=== PATIENT | male | born 1960 | race Caucasian/White ===

== ENCOUNTER → 2020-12-15 00:44 | Outpatient (CLI) | payer OTHER, SELFPAY ==
[2020-12-15 20:44] LABS: SARS-CoV-2 RNA PCR Negative
== END ==
PROVIDERS: PCP Family Medicine; Visit Provider Internal Medicine Gastroenterology
DX: Z01.812 Encounter for preprocedural laboratory examination (principal); Z20.822 Contact with and (suspected) exposure to COVID-19
CPT/HCPCS: C9803; U0003; U0005

== ENCOUNTER 2020-12-18 00:56 | Day surgery (SDC) | payer OTHER, SELFPAY ==
[2020-12-08 13:25] VITALS: BMI 32.2
[2020-12-18 09:15] VITALS: BP 146/80; PULSE 67; RESP 16; TEMP 36.6; O2SAT 99
[2020-12-18] MEDS: LACTATED RINGERS 1,000 ML 150 ML IV CONT (09:34)
[2020-12-18 09:38] LABS: Glucose Point of Care 130 (65-105)
--- NOTE | 2020-12-18 09:41 | WPDANESEPPF ---
Anes - Initial Pre Proc Eval Procedure: Operation Date: 12/18/20 10:00 Proposed Procedures p Screening Colonoscopy - Joel Polanco MD Date/Time: 12/18/20 09:41 Surgeon: Joel Polanco MD Pre Op Diagnosis: neoplasm screening, pers hx colon polyp Patient Data Age: 60 Gender: M Height: 6 ft 3 in Weight: 115 kg Last Vital Signs Temp 97.8 F 12/18/20 09:15 Pulse 67 12/18/20 09:15 Resp 16 12/18/20 09:15 BP 146/80 H 12/18/20 09:15 Pulse Ox 99 12/18/20 09:15 Allergies Allergy/AdvReac Type Severity Reaction Status Date / Time No Known Allergies Allergy Verified 12/18/20 09:04 Home Medications Medication Instructions Recorded Confirmed Type amlodipine 5 mg-benazepril 40 mg 1 cap PO DAILY #90 cap 04/06/20 12/08/20 Rx capsule finasteride 5 mg tablet 5 mg PO DAILY #90 tablet 04/08/20 12/08/20 Rx metoprolol succinate 25 mg 25 mg PO DAILY #90 tablet 04/08/20 12/08/20 Rx tablet,extended release 24 hr metformin 500 mg tablet,extended 1,000 mg PO BID #360 tablet 12/02/20 12/08/20 Rx release 24 hr rosuvastatin 20 mg tablet 20 mg PO DAILY #90 tablet 12/02/20 12/08/20 Rx Laboratory Tests 12/18/20 09:34 POC Capillary Glucose 130 mg/dl H mg/dl (65-105) Patient hx anesthesia problems: none Family hx anesthesia problems: none PMFSH Past Medical History Medical History (Updated 12/18/20 @ 09:41 by Don Manley MD) BMI 35.0-35.9,adult Body mass index (bmi) 37.0-37.9, adult (04/16/19) BPH without obstruction/lower urinary tract symptoms Essential (primary) hypertension Mixed hyperlipidemia Type 2 diabetes mellitus without complication, without long-term current use of insulin Vitamin B12 deficiency anemia Family History Family History Mother Hypertension Sibling Family history of malignant neoplasm of breast Father Family history of emphysema, Onset Age: 83 Social History Social History Smoking status: Never smoker Alcohol intake: never Living arrangements: with family Gender identity (if verbalized by the patient): Male Spiritual care concerns: No Anes - Eval Final PreProcedure Day of Procedure 12/18/20 09:41 Patient weight: obese Heart: regular rate and rhythm Lungs: clear to auscultation Airway: Mallampati scale class II Neurological: alert and oriented Last oral intake: >/= 8 hours ASA classification: III Emergent: no Anesthetic plan: proceed Anesthesia type and monitoring: general GIVS and standard monitoring Informed Consent: The patient's anesthetic plan and its attendant risks and benefits were discussed with the patient/family/POA. Questions were solicited and answers provided to the satisfaction of the patient/family/POA.
--- NOTE | 2020-12-18 10:02 | PM.HPGS ---
History of Present Illness History of Present Illness Consent: Risks, benefits, and alternatives have been discussed and questions answered. Patient agrees to proceed with procedure. Chief complaint: neoplasm screening, pers hx colon polyp Narrative: Eze Jacob is a 60 year old male with colon polyp, last one ~ 5 years ago. Review of Systems Constitutional: Constitutional: Denies headache(s) and Denies weakness Eyes: Eyes: Denies blurry vision ENT: Reports Normal hearing present, Denies headache(s) and Denies neck pain Cardiovascular: Cardiovascular: Denies chest pain and Denies dyspnea Respiratory: Respiratory: Denies dyspnea Gastrointestinal: Gastrointestinal: Reports no additional gastrointestinal complaints Genitourinary: Genitourinary: Denies dysuria Musculoskeletal: Musculoskeletal: Denies neck pain Integumentary/Breasts: Skin/Breast: Denies dry skin Neurologic: Reports Normal hearing present, Denies headache(s) and Denies weakness Psychiatric: Psychiatric: Denies anxiety Endocrine: Endocrine: Denies change in body appearance Hematologic/Lymphatic: Hematologic/Lymphatic: Denies easy bleeding Allergic/Immunologic: Allergic/Immunologic: Denies urticaria PMF Past Medical History Medical History (Updated 12/18/20 @ 09:41 by Don Manley MD) BMI 35.0-35.9,adult Body mass index (bmi) 37.0-37.9, adult (04/16/19) BPH without obstruction/lower urinary tract symptoms Essential (primary) hypertension Mixed hyperlipidemia Type 2 diabetes mellitus without complication, without long-term current use of insulin Vitamin B12 deficiency anemia Family History Family History Mother Hypertension Sibling Family history of malignant neoplasm of breast Father Family history of emphysema, Onset Age: 83 Social History Social History Smoking status: Never smoker Alcohol intake: never Living arrangements: with family Gender identity (if verbalized by the patient): Male Spiritual care concerns: No Meds Home Medications and Allergies Home Medications Medication Instructions Recorded Confirmed Type amlodipine 5 mg-benazepril 40 mg 1 cap PO DAILY #90 cap 04/06/20 12/08/20 Rx capsule finasteride 5 mg tablet 5 mg PO DAILY #90 tablet 04/08/20 12/08/20 Rx metoprolol succinate 25 mg 25 mg PO DAILY #90 tablet 04/08/20 12/08/20 Rx tablet,extended release 24 hr metformin 500 mg tablet,extended 1,000 mg PO BID #360 tablet 12/02/20 12/08/20 Rx release 24 hr rosuvastatin 20 mg tablet 20 mg PO DAILY #90 tablet 12/02/20 12/08/20 Rx Allergies Allergy/AdvReac Type Severity Reaction Status Date / Time No Known Allergies Allergy Verified 12/18/20 09:04 Vital Signs Vital Signs - 24 hr 12/18/20 09:15 Temperature 97.8 F Pulse Rate 67 Respiratory Rate 16 Blood Pressure 146/80 H Pulse Oximetry 99 Exam Const: General: comfortable and no acute distress HENMT: General nose exam: Normal nares present Eyes: General: appearance normal, both eyes and all related structures Neck: Neck: no JVD Resp: Auscultation: clear to auscultation bilaterally Cardio: Rate: regular rate Rhythm: regular rhythm GI: Inspection: non-distended GI Palp: Yes Soft to palpation Skin: General skin exam: normal color Neuro: General: gait normal Speech: normal speech Extrem: General: normal to inspection Psych: Mental Status: mental status grossly normal Assessment and Plan Assessment and plan (1) Polyp of colon: Qualifiers: Colon polyp type: unspecified Colon location: unspecified part of colon Qualified Code(s): K63.5 - Polyp of colon Code(s): K63.5 - Polyp of colon Status: Acute Assessment and Plan: colonoscopy
[2020-12-18 10:38] VITALS: BP 123/67; PULSE 60; RESP 22; O2SAT 99
[2020-12-18 10:48] VITALS: BP 119/64; PULSE 62; RESP 20; O2SAT 98
[2020-12-18 10:58] VITALS: BP 149/81; PULSE 60; RESP 18; O2SAT 100
== END 2020-12-18 11:05 | disposition home or self-care (01) ==
PROVIDERS: PCP Family Medicine; Visit Provider Internal Medicine Gastroenterology
PROC: 0DJD8ZZ Inspection of Lower Intestinal Tract, Via Natural or Artificial Opening Endoscopic (ICD-10-PCS; CPT 45378; principal; 2020-12-18 10:00)
DX: Z12.11 Encounter for screening for malignant neoplasm of colon (principal); D12.2 Benign neoplasm of ascending colon; D12.5 Benign neoplasm of sigmoid colon; D12.3 Benign neoplasm of transverse colon; I10 Essential (primary) hypertension; E78.5 Hyperlipidemia, unspecified; E11.9 Type 2 diabetes mellitus without complications; E53.8 Deficiency of other specified B group vitamins; N40.0 Benign prostatic hyperplasia without lower urinary tract symptoms; K64.8 Other hemorrhoids
CPT/HCPCS: 45385; 82948; 88305; C9803; J2704; J7120; U0003; U0005

== ENCOUNTER → 2021-11-05 13:52 | Outpatient (CLI) | payer OTHER, SELFPAY ==
--- NOTE | ~2021-11-05 | XR_ITS ---
XR abdomen/kub 1V 11/05/2021 14:51 INDICATION: Gross hematuria TECHNIQUE: KUB COMPARISON: None FINDINGS: Bowel gas pattern is normal. There is no evidence of free air, mass, organomegaly, ascites or obstruction. There is a calcification overlying the right pelvis, consistent with appendicolith s een on CT examination. The bones appear intact. IMPRESSION: 1: Appendicolith. Reviewed, dictated and finalized at location A. RCYCLE DELIVERER IMPRESSION: 1: Appendicolith.
--- NOTE | ~2021-11-05 | CT_ITS ---
EXAMINATION: CT abdomen pelvis wo/w con DATE: 11/05/2021 14:50 INDICATION: Gross hematuria TECHNIQUE: Computed tomography (CT) of the abdomen and pelvis was performed with and without 130 cc O mnipaque 350 intravenous contrast. The dose-length product was 2289.70 mGy-cm. Automated exposure con trol and iterative reconstruction technique were employed. COMPARISON: CT dated 05/25/2018. FINDINGS: There is a new bladder wall mass measuring 3.6 x 2.7 cm along the right posterior lateral m argin. Enlarged prostate gland. The liver, spleen, pancreas, adrenal glands and kidneys are unremarkable. Gallbladder is present. The re are bilateral low-density lesions in both kidneys, most likely benign cysts. Ureters are normal in course and caliber. Nonobstructive bowel gas pattern. There is mild-moderate lower thoracic and lumb ar spondylosis. No focal lytic or blastic lesions. IMPRESSION: 1. New bladder wall mass measuring 3.6 x 2.7 cm along the right posterior lateral margin, concerning for transitional cell carcinoma. Recommend correlation with cystoscopy. Reviewed, dictated and finalized at location A. SIVE CARDIOLOGIST IMPRESSION: 1. New bladder wall mass measuring 3.6 x 2.7 cm along the right posterior later al margin, concerning for transitional cell carcinoma. Recommend correlation wi cystoscopy.
[2021-11-05 14:28] LABS: Estimated Glomerular Filt Rate > 60
== END ==
PROVIDERS: PCP Family Medicine; Visit Provider Nurse Practitioner Adult Health
DX: R31.0 Gross hematuria (principal)
CPT/HCPCS: 74018; 74178; Q9967

== ENCOUNTER 2021-11-22 12:05 | Outpatient (CLI) | payer OTHER, SELFPAY ==
--- NOTE | 2021-11-22 12:00 | ECG_ITS ---
Measurements Intervals [place] Rate: 49 P: 5 AK: 179 QRS: -10 QRSD: 114 T: 32 QT: 431 QTc: 393 Interpretive Statements SINUS BRADYCARDIA OTHERWISE WITHIN NORMAL LIMITS NO PREVIOUS ECG AVAILABLE FOR COMPARISON Electronically Signed On 11-22-2021 15:49:01 CDT by Alan Crews M.D.
[2021-11-22 12:37] LABS: Basophils Percent Auto 0.3 % (0.2-1.2); Eosinophils Percent Auto 0.7 % (0-4.4); Hematocrit 44.3 % (42.0-52.0); Immature Granulocyte Absolute 0.02 K/mm3 (0.00-0.031); Immature Granulocyte Percent A 0.3 % (0-0.5); Lymphocytes Absolute Auto 1.68 K/mm3 (0.9-3.2); Lymphocytes Percent Auto 27.4 % (18.3-44.2); Mean Corpuscular HGB Conc 31.6 g/dl (32-36); Mean Corpuscular Hemoglobin 29.5 pg (26-34); Mean Corpuscular Volume 93.5 fl (80-100); Mean Platelet Volume 11.3 fl (7.4-10.4); Monocytes Absolute Auto 0.4 K/mm3 (0.1-0.6); Monocytes Percent Auto 7.2 % (2.6-8.5); Neutrophils Absolute Auto 3.9 K/mm3 (1.3-6.7); Neutrophils Percent Auto 64.1 % (45.5-73.1); Platelet Count Result 187 k/mm3 (150-375); Red Blood Count 4.74 M/mm3 (4.6-6.20); Red Cell Distribution Width 13.3 % (11.5-14.5); White Blood Count 6.1 K/mm3 (4.5-10.0)
[2021-11-22 12:57] LABS: Prothrombin Time 12.7 Seconds (11.1-14.7)
[2021-11-22 12:58] LABS: Partial Thromboplastin Time 25.4 SECONDS (22.3-36.8)
[2021-11-22 13:02] LABS: Anion Gap 6 mmol/L (8-16); Blood Urea Nitrogen 12 mg/dL (9-20); Calcium 9.2 mg/dL (8.4-10.2); Carbon Dioxide 28 mmol/L (22-30); Chloride 105 mmol/L (98-107); Estimated Glomerular Filt Rate > 60; Glucose 114 mg/dL (65-110); Potassium 4.1 mmol/L (3.4-5.0); Sodium 139 mmol/L (137-145)
== END 2021-11-22 12:06 | disposition home or self-care (01) ==
LOC: ANHSURGERY 12:10
PROVIDERS: PCP Family Medicine; Visit Provider Urology
DX: D49.4 Neoplasm of unspecified behavior of bladder (principal); E11.9 Type 2 diabetes mellitus without complications; I10 Essential (primary) hypertension; Z01.818 Encounter for other preprocedural examination
CPT/HCPCS: 36415; 80048; 85025; 85610; 85730; 87086; 93005

== ENCOUNTER 2021-11-30 01:30 | Day surgery (SDC) | payer OTHER, SELFPAY ==
[2021-11-22 10:45] VITALS: BMI 29.9
--- NOTE | 2021-11-22 10:55 | PC.NURSE ---
Report to the Outpatient Waiting Room, entrance under the green pavilion located off [facility], at time 7:00 on date 11/30/21. OR Time: 9:00. - You and your visitor will be asked a series of questions to screen for COVID 19 for your protection. - A mask is required within the hospital. One visitor will be allowed to accompany the patient into the hospital. Patients visitor will be instructed to remain with patient at all times or leave the building. We will allow the visitor to come back to the postoperative area when patient is ready. Preoperative COVID Testing Requirements: No COVID Test needed if: (proof is required; if not received patient will have Rapid Test prior to entry) - Patient has received COVID Vaccine at least 14 days prior to procedure date or - Patient has positive COVID test result within last 90 days of surgery date. COVID Test needed if above criteria is not met Patients may have clear liquids (water, carbonated beverages, clear teas, apple juice) until 3 hours prior to surgery (6:00) with a maximum of 20 ounces. - No food from midnight until time of surgery Take the following medications with a SIP of water the morning of surgery: METOPROLOL Medications to discontinue per physician: VITAMINS/SUPPLEMENTS Date to take last dose: 11/26/21 Please no make-up, nail frisian, hairspray, perfume, deodorant, or body powder the day of surgery. No jewelry (including any body piercings) or valuables the day of surgery, leave them at home. Please take a shower or bath the night before, or the morning of, surgery with an antibacterial soap. Wear comfortable, loose fitting clothing. - Jewelry must be removed prior to entering the operating room. Rings and piercings that are not removed may be cut off. - The hospital will not accept responsibility for valuables. - Please leave all valuables, including medications, at home the day of surgery. If you are going home after surgery, a licensed coal tram driver must drive you home. - NO public transportation without another adult. - We recommend that an adult stay with you for 24 hours following discharge. - We also recommend that you do not drive, make important decision, drink alcoholic beverages, or take any drugs that were not prescribed by your health care provider for at least 24 hours after your discharge time. Follow any additional instructions given to you from your surgeon. Telephone instructions given to VADIM MOISE and asked if any additional questions and then verbalized understanding. Patient advised to call surgeon office or pre surgery nurse liaison [phone] if any additional questions.
--- NOTE | 2021-11-29 15:30 | WPDANESEPPF ---
Anes - Initial Pre Proc Eval Procedure: Operation Date: 11/30/21 09:00 Proposed Procedures p Trans Urethral Resection Bladder Tumor - Meño Evans MD Date/Time: 11/29/21 15:30 Surgeon: Meño Evans MD Pre Op Diagnosis: bladder tumors Patient Data Age: 61 Gender: M Height: 1.91 m Weight: 108.86 kg Allergies Allergy/AdvReac Type Severity Reaction Status Date / Time No Known Allergies Allergy Verified 11/30/21 07:42 Home Medications Medication Instructions Recorded Confirmed Type amlodipine 5 mg-benazepril 40 mg 1 cap PO DAILY #90 cap 04/05/21 11/30/21 Rx capsule finasteride 5 mg tablet 5 mg PO DAILY #90 tablet 04/05/21 11/30/21 Rx metformin 500 mg tablet,extended 1,000 mg PO BID #360 tablet 04/05/21 11/30/21 Rx release 24 hr metoprolol succinate 25 mg 25 mg PO DAILY #90 tablet 04/06/21 11/30/21 Rx tablet,extended release 24 hr rosuvastatin 20 mg tablet 20 mg PO DAILY #90 tablet 09/28/21 11/30/21 Rx cholecalciferol (vitamin D3) 125 mcg PO DAILY 11/22/21 11/30/21 History [Vitamin D3] lysine [L-Lysine] 1,000 mg PO DAILY 11/22/21 11/30/21 History multivitamin 1 tablet PO DAILY 11/22/21 11/30/21 History vitamin B complex [Complex B-100] 1 tablet PO DAILY 11/22/21 11/30/21 History Patient hx anesthesia problems: none Family hx anesthesia problems: none Results Review: All pre-operative results and documents have been reviewed as part of the pre-operative evaluation. [facility] Past Medical History Medical History (Updated 09/24/21 @ 10:12 by Josiah Wood MD) Benign microscopic hematuria BMI 32.0-32.9,adult BMI 35.0-35.9,adult Body mass index (bmi) 37.0-37.9, adult (04/16/19) BPH without obstruction/lower urinary tract symptoms Chronic constipation Epididymitis, left (05/21/21) Essential (primary) hypertension Microalbuminuria (05/21/21) Mixed hyperlipidemia Type 2 diabetes mellitus without complication, without long-term current use of insulin Umbilical hernia (~05/24/21) very small umbilical hernia easily reduced UTI (urinary tract infection) (~09/22/21) Vitamin B12 deficiency anemia Family History Family History Mother Hypertension Sibling Family history of malignant neoplasm of breast Father Family history of emphysema, Onset Age: 83 Social History Social History (Updated 05/24/21 @ 08:06 by Evie Hopson MA) Smoking status: Never smoker Alcohol intake: never Substance use: never Substance use type: does not use Living arrangements: with family Gender identity (if verbalized by the patient): Male Spiritual care concerns: No Anes - Eval Final PreProcedure Day of Procedure 11/29/21 15:30 Patient weight: obese Heart: regular rate and rhythm Lungs: clear to auscultation and normal air movement Airway: Mallampati scale class II Neurological: alert and oriented Last oral intake: >/= 8 hours ASA classification: III Emergent: no Anesthetic plan: proceed Anesthesia type and monitoring: general LMA Results Review: All pre-operative results and documents have been reviewed as part of the pre-operative evaluation. Informed Consent: The patient's anesthetic plan and its attendant risks and benefits were discussed with the patient/family/POA. Questions were solicited and answers provided to the satisfaction of the patient/family/POA.
[2021-11-30] VITALS (7 sets, daily range): BP systolic 134–146; BP diastolic 70–78; PULSE 58–76; RESP 14–18; TEMP 36.4–36.8; O2SAT 96–100
--- NOTE | 2021-11-30 07:24 | WPDHPUPDATE1 ---
History and Physical Update Update Date/Time: 11/30/21 07:24 History and Physical has been reviewed, including an updated exam of the patient. There are NO changes in the patient's condition. Risks, benefits, and alternatives have been discussed and questions answered. Patient agrees to proceed with procedure. Proceed with TURBT
[2021-11-30] MEDS: LACTATED RINGERS 1,000 ML 30 ML IV CONT ×2 (07:33→10:02)
[2021-11-30 07:36] LABS: Glucose Point of Care 143 mg/dl (65-105)
[2021-11-30] MEDS: ceFAZolin 2 GM/D5W 50 ML 2 GM/50 ML BAG IVPB (08:55)
[2021-11-30] MEDS: LIDOCAINE HCL 2% GEL UROJET 10 ML PKG MUCOUS MEM (09:51)
--- NOTE | 2021-11-30 09:56 | W.PM.PROC2 ---
Procedure Note - Detailed Date of Procedure 11/30/21 Pre-op Diagnosis bladder tumors Post-op Diagnosis Same (Large bladder tumor up to 5 cm) Procedure Performed Urethral dilatation with transurethral resection of large bladder tumor greater than 5 cm Surgeon Meño Evans MD Anesthesia General Description of Procedure Patient is taken the operative suite correctly identified. Once anesthesia was obtained he was placed in dorsal lithotomy position prepped draped usual sterile fashion. Meatus was dilated up to 28 Dominican. Twenty-four Dominican resectoscope sheath was then placed in the bladder. He does have lateral lobe hypertrophy. Upon entering the bladder there was a large tumor superior lateral to the right ureteral orifice. The areas approximately 5 cm. We resected the tumor down to the base. He did require some paralysis and then resected the base of the tumor. These were sent separately. Hemostasis was adequate at termination procedure. We did fulgurate the edges of the resection. 2% viscous lidocaine was inserted urethra. Eighteen Dominican Friedman was then placed and connected to continuous bladder irrigation. He is taken recovery stable condition. His urine remains clear to be discharged home with a Friedman catheter and have that removed on . Estimated Blood Loss 25 Drains Yes Packing No Pathology Yes Complications No immediate complications Condition Stable Disposition PACU
[2021-11-30 10:12] LABS: Glucose Point of Care 129 mg/dl (65-105)
--- NOTE | 2021-11-30 10:41 | SUR.PHASEI ---
CLAMPED CBI PER DR SOLARES AT 1040. WAS RUNNING CLEAR.
--- NOTE | 2021-11-30 14:17 | SUR.PHASEII ---
RN showed patient how to empty catheter and change between a leg bag and 2000mL bag. RN sent home a 20mL syringe to deflate balloon before removing catheter on .
== END 2021-11-30 11:35 | disposition home or self-care (01) ==
PROVIDERS: PCP Family Medicine; Visit Provider Urology
PROC: 0TBB8ZZ Excision of Bladder, Via Natural or Artificial Opening Endoscopic (ICD-10-PCS; CPT 52240; principal; 2021-11-30 09:00)
DX: C67.8 Malignant neoplasm of overlapping sites of bladder (principal); I10 Essential (primary) hypertension; E78.2 Mixed hyperlipidemia; E11.9 Type 2 diabetes mellitus without complications; D51.3 Other dietary vitamin B12 deficiency anemia; Z79.84 Long term (current) use of oral hypoglycemic drugs; E66.9 Obesity, unspecified; Z68.30 Body mass index [BMI] 30.0-30.9, adult
CPT/HCPCS: 52240; 36415; 80048; 82948; 85025; 85610; 85730; 87086; 88305; 93005; A9270; J0690; J1100; J2370; J2405; J2704; J2710; J3010; J7120

== ENCOUNTER 2022-07-01 13:29 | Outpatient (CLI) | payer OTHER, SELFPAY ==
[2022-07-01 14:33] LABS: INR 1.1; Prothrombin Time 13.5 Seconds (11.1-14.7)
[2022-07-01 14:34] LABS: Partial Thromboplastin Time 26.8 SECONDS (22.3-36.8)
== END 2022-07-01 13:30 | disposition home or self-care (01) ==
LOC: ANHSURGERY 13:32
PROVIDERS: PCP Family Medicine; Visit Provider Urology
DX: D49.4 Neoplasm of unspecified behavior of bladder (principal); Z01.818 Encounter for other preprocedural examination
CPT/HCPCS: 36415; 85610; 85730

== ENCOUNTER 2022-07-05 01:46 | Day surgery (SDC) | payer OTHER, SELFPAY ==
--- NOTE | 2022-06-29 12:32 | PC.NURSE ---
PRE-OP INSTRUCTIONS, PLEASE READ CAREFULLY Report to the Outpatient Waiting Room, entrance under the green pavilion located off [facility], at time _0715_ on date _07/05/22_. Planned Procedure Time: _0915__. Time changes happen often and if your time is changed the preop area will call you the afternoon before. - You and your visitor will be asked to self-screen and do not enter if you have any COVID symptoms. - We encourage only one visitor and NO visitors under age 16 are allowed at this time. Your visitor will receive communication by the phone number that is given day of service. - The patient visitor is requested to social distance or may leave the building when not with patient due to restrictions. - A mask is required within the hospital. Patients may have clear liquids (water, carbonated beverages, clear teas, apple juice) until 3 hours prior to surgery 0615 AM) with a maximum of 20 ounces. - No food from midnight until time of surgery Take the following medications with a SIP of water the morning of surgery: _METOPROLOL_ Medications to discontinue per ANESTHESIA - _MULTIVITAMIN 3 DAYS PRIOR TO SURGERY, Date to take last dose 07/01/22_ Please no make-up, nail macedonian, hairspray, perfume, deodorant, or body powder the day of surgery. No jewelry (including any body piercings) or valuables the day of surgery, leave them at home. Please take a shower or bath the night before, or the morning of, surgery with an antibacterial soap. Wear comfortable, loose fitting clothing. - Jewelry must be removed prior to entering the operating room. Rings and piercings that are not removed may be cut off. - The hospital will not accept responsibility for valuables. - Please leave all valuables, including medications, at home the day of surgery. If you are going home after surgery, a licensed refrigerated company driver must drive you home. - NO public transportation without another adult. - We recommend that an adult stay with you for 24 hours following discharge. - We also recommend that you do not drive, make important decision, drink alcoholic beverages, or take any drugs that were not prescribed by your health care provider for at least 24 hours after your discharge time. Follow any additional instructions given to you from your surgeon. If you or anyone in your household have experienced Covid symptoms in the past week, please notify your surgeon or the nurse liaison at the phone number below for possible testing. Telephone instructions given to ____PT and asked if any additional questions and then verbalized understanding. Patient advised to call surgeon office or pre surgery nurse liaison [phone] if any additional questions.
[2022-07-05] VITALS (7 sets, daily range): BP systolic 112–151; BP diastolic 61–73; PULSE 50–65; RESP 12–16; TEMP 36.3–36.8; O2SAT 95–99; BMI 31.1
[2022-07-05] MEDS: LACTATED RINGERS 1,000 ML 30 ML IV CONT (08:20)
[2022-07-05 08:35] LABS: Glucose Point of Care 143 mg/dl (65-105)
--- NOTE | 2022-07-05 09:03 | WPDHPUPDATE1 ---
History and Physical Update Update Date/Time: 07/05/22 09:03 History and Physical has been reviewed, including an updated exam of the patient. There are NO changes in the patient's condition. Risks, benefits, and alternatives have been discussed and questions answered. Patient agrees to proceed with procedure.
--- NOTE | 2022-07-05 09:06 | WPDANESEPPF ---
Anes - Initial Pre Proc Eval Procedure: Operation Date: 07/05/22 09:15 Proposed Procedures p Cystoscopy Bladder Biopsy with Fulguration, - Meño Evans MD s Possible Trans Urethral Resection Bladder Tumor - Meño Evans MD Date/Time: 07/05/22 09:06 Surgeon: Meño Evans MD Pre Op Diagnosis: malignant neoplasm of bladder Patient Data Age: 62 Gender: M Height: 1.91 m Weight: 112.9 kg Allergies Allergy/AdvReac Type Severity Reaction Status Date / Time No Known Allergies Allergy Verified 07/05/22 08:08 Home Medications Medication Instructions Recorded Confirmed Type rosuvastatin 20 mg tablet 20 mg PO DAILY #90 tabs 09/28/21 06/29/22 Rx lysine 1,000 mg tablet 1,000 mg PO DAILY 11/22/21 06/29/22 History multivitamin 1 tablet PO DAILY 11/22/21 07/05/22 History cholecalciferol (vitamin D3) 125 5,000 unit PO DAILY 12/01/21 06/29/22 History mcg (5,000 unit) tablet (Vitamin D3) vitamin B complex (Complex B-100 1 tablet PO DAILY 12/01/21 06/29/22 History tablet,extended release) finasteride 5 mg tablet 5 mg PO DAILY #90 tabs 03/23/22 06/29/22 Rx amlodipine 5 mg-benazepril 40 mg 1 cap PO DAILY #90 caps 03/24/22 06/29/22 Rx capsule metformin 500 mg tablet,extended 1,000 mg PO BID #360 tabs 03/24/22 06/29/22 Rx release 24 hr metoprolol succinate 25 mg 25 mg PO DAILY #90 tabs 03/24/22 06/29/22 Rx tablet,extended release 24 hr Laboratory Tests 07/05/22 08:31 POC Capillary Glucose 143 mg/dl H mg/dl (65-105) Patient hx anesthesia problems: none Family hx anesthesia problems: none Results Review: All pre-operative results and documents have been reviewed as part of the pre-operative evaluation. [facility] Past Medical History Medical History Benign microscopic hematuria BMI 30.0-30.9,adult BMI 31.0-31.9,adult BMI 32.0-32.9,adult BMI 35.0-35.9,adult Body mass index (bmi) 37.0-37.9, adult (04/16/19) BPH without obstruction/lower urinary tract symptoms Chronic constipation COVID-19 (03/02/22) Epididymitis, left (05/21/21) Essential (primary) hypertension Microalbuminuria (05/21/21) Ratio normal at 17 on 06/10/2022. Resolved Mixed hyperlipidemia Total cholesterol 136, triglycerides 98, HDL 44, LDL 74 on 06/10/2022. Neoplasm, bladder Obesity (BMI 30.0-34.9) Type 2 diabetes mellitus without complication, without long-term current use of insulin Fasting glucose 134 with hemoglobin A1c 6.0 and urine microalbumin ratio of 17 on 06/10/2022. Umbilical hernia (~05/24/21) very small umbilical hernia easily reduced UTI (urinary tract infection) (~09/22/21) Vitamin B12 deficiency anemia Level normal at 942 with folic acid 22.6 and hemoglobin 13.6 on 06/10/2022. Family History Family History Mother Hypertension Sibling Family history of malignant neoplasm of breast Father Family history of emphysema, Onset Age: 83 Social History Social History Smoking status: Never smoker Second hand tobacco smoke exposure: No Alcohol intake: never Substance use: never Substance use type: does not use Living arrangements: with family Gender identity (if verbalized by the patient): Male Spiritual care concerns: No Anes - Eval Final PreProcedure Day of Procedure 07/05/22 09:06 Patient weight: obese Heart: regular rate and rhythm Lungs: clear to auscultation Airway: Mallampati scale class II Neurological: alert and oriented Last oral intake: >/= 8 hours ASA classification: III Emergent: no Anesthesia type and monitoring: general LMA and standard monitoring Results Review: All pre-operative results and documents have been reviewed as part of the pre-operative evaluation. Informed Consent: The patient's anesthetic plan and its attendant risks and benefits were discus
--- NOTE | 2022-07-05 09:25 | SUR.PREOP ---
0925- Notified patient of delayed procedure start time. Patient verbalized understanding.
--- NOTE | 2022-07-05 10:12 | WPDHPUPDATE1 ---
History and Physical Update Update Date/Time: 07/05/22 10:12 History and Physical has been reviewed, including an updated exam of the patient. There are NO changes in the patient's condition. Risks, benefits, and alternatives have been discussed and questions answered. Patient agrees to proceed with procedure. Proceed with cysto, bladder biopsy, fulguration, possible turbt
[2022-07-05] MEDS: ceFAZolin 2 GM/D5W 50 ML 2 GM/50 ML BAG IVPB (10:15)
--- NOTE | 2022-07-05 11:01 | P.OP_ITS ---
Procedure Note - Detailed Date of Procedure 07/05/22 Pre-op Diagnosis malignant neoplasm of bladder Post-op Diagnosis Same Procedure Performed TURBT of multiple small tumors in total an area of 2-1/2-3 cm Surgeon Meño Evans MD Anesthesia General Description of Procedure Patient is taken to the operative suite correctly identified. Once anesthesia was obtained was placed in dorsal lithotomy position prepped draped usual sterile fashion. The urethra was dilated to 26 Greenlandic using sounds. Twenty-f our Greenlandic resectoscope was then inserted bladder. Bladder was inspected in its entirety. Patient has at least 13-15 small papillary lesions scattered throughout the bladder. These are on the right floor near the bladder neck, posterior wall, right anterior wall and posterior wall near the dome. These were resected all sent together. They all appeared more superficial in nature. Hemostasis was adequate. 2% viscous lidocaine was inserted into urethra patient is taken recovery stable condition. Will await final path point most likely will recommend initiating BCG in 6 weeks time for a 6 week course with re scoping in the office. Estimated Blood Loss 0 Drains No Packing No Pathology Yes Complications No immediate complications Condition Stable Disposition PACU
[2022-07-05] MEDS: LIDOCAINE HCL 2% GEL UROJET 10 ML PKG MUCOUS MEM (11:07)
[2022-07-05 11:12] LABS: Glucose Point of Care 132 mg/dl (65-105)
[2022-07-05] MEDS: oxyCODONE HCL (*CRX) 5 MG TAB IR PO (12:15)
== END 2022-07-05 12:43 | disposition home or self-care (01) ==
PROVIDERS: PCP Family Medicine; Visit Provider Urology
PROC: 0TBB8ZX Excision of Bladder, Via Natural or Artificial Opening Endoscopic, Diagnostic (ICD-10-PCS; CPT 52204; principal; 2022-07-05 09:15)
PROC: 0TBB8ZZ Excision of Bladder, Via Natural or Artificial Opening Endoscopic (ICD-10-PCS; CPT 52235; 2022-07-05 09:15)
DX: C67.8 Malignant neoplasm of overlapping sites of bladder (principal); I10 Essential (primary) hypertension; E78.2 Mixed hyperlipidemia; E11.9 Type 2 diabetes mellitus without complications; D51.3 Other dietary vitamin B12 deficiency anemia; K59.09 Other constipation; N40.0 Benign prostatic hyperplasia without lower urinary tract symptoms; Z79.84 Long term (current) use of oral hypoglycemic drugs; E66.9 Obesity, unspecified; Z68.31 Body mass index [BMI] 31.0-31.9, adult
CPT/HCPCS: 52235; 36415; 82948; 85610; 85730; 88305; A9270; J0690; J1170; J2250; J2405; J2704; J3010; J7120

== ENCOUNTER 2022-12-30 12:28 | Outpatient (CLI) | payer OTHER, SELFPAY ==
--- NOTE | 2022-12-30 12:30 | ECG_ITS ---
Measurements Intervals [place] Rate: 62 P: 30 [place]: 214 QRS: -30 QRSD: 113 T: 12 QT: 394 QTc: 401 Interpretive Statements SINUS RHYTHM WITH FIRST DEGREE AV BLOCK BORDERLINE LEFT AXIS DEVIATION [QRS AXIS < -20] COMPARED TO ECG 11/22/2021 12:22:15 SINUS RHYTHM NOW PRESENT FIRST DEGREE AV BLOCK NOW PRESENT Electronically Signed On 12-30-2022 13:03:19 CDT by See Zambrano M.D.
== END 2022-12-30 12:29 | disposition home or self-care (01) ==
PROVIDERS: PCP Family Medicine; Visit Provider Urology
DX: D49.4 Neoplasm of unspecified behavior of bladder (principal); E78.2 Mixed hyperlipidemia; I10 Essential (primary) hypertension; I44.0 Atrioventricular block, first degree
CPT/HCPCS: 87086; 93005

== ENCOUNTER 2023-01-03 02:19 | Day surgery (SDC) | payer OTHER, SELFPAY ==
[2022-12-27 14:54] VITALS: BMI 33.1
--- NOTE | 2022-12-27 14:59 | PC.NURSE ---
Report to the Outpatient Waiting Room, entrance under the green pavilion located off [facility], at time 10:00 on date 01/03/23. Planned Procedure Time: 12:00. Time changes happen often and if your time is changed the preop area will call you the afternoon before. - You and your visitor will be asked to self-screen and do not enter if you have any COVID symptoms. - A mask is optional within the hospital at this time. Patients may have clear liquids (water, carbonated beverages, clear teas, apple juice) until 3 hours prior to surgery (9:00) with a maximum of 20 ounces. - No food from midnight until time of surgery Take the following medications with a SIP of water the morning of surgery: METOPROLOL DO NOT STOP ANY OF YOUR OTHER PRESCRIPTION MEDICATIONS PRIOR TO SURGERY EXCEPT THE FOLLOWING Medications to discontinue per physician: VITAMINS/SUPPLEMENTS Date to take last dose: 12/30/22 Please no make-up, nail kazakh, hairspray, perfume, deodorant, or body powder the day of surgery. No jewelry (including any body piercings) or valuables the day of surgery, leave them at home. Please take a shower or bath the night before, or the morning of, surgery with an antibacterial soap. Wear comfortable, loose fitting clothing. - Jewelry must be removed prior to entering the operating room. Rings and piercings that are not removed may be cut off. - The hospital will not accept responsibility for valuables. - Please leave all valuables, including medications, at home the day of surgery. If you are going home after surgery, a licensed food mobile driver must drive you home. - NO public transportation without another adult if you receive anesthesia. - We recommend that an adult stay with you for 24 hours following discharge. - We also recommend that you do not drive, make important decision, drink alcoholic beverages, or take any drugs that were not prescribed by your health care provider for at least 24 hours after your discharge time. Follow any additional instructions given to you from your surgeon. If you or anyone in your household have experienced Covid symptoms in the past week, please notify your surgeon or the nurse liaison at the phone number below for possible testing. Telephone instructions given to DEMARIO MOISE and asked if any additional questions and then verbalized understanding. Patient advised to call surgeon office or pre surgery nurse liaison [phone] if any additional questions.
--- NOTE | 2023-01-02 15:23 | WPDANESEPPF ---
Anes - Initial Pre Proc Eval Procedure: Operation Date: 01/03/23 12:00 Proposed Procedures p Cystoscopy Bladder Biopsy with Fulguration with Possible Mitomycin or Gemcitabine Instillation - Meño Evans MD Date/Time: 01/02/23 15:23 Surgeon: Meño Evans MD Pre Op Diagnosis: bladder cancer Patient Data Age: 62 Gender: M Height: 1.91 m Weight: 120.2 kg Allergies Allergy/AdvReac Type Severity Reaction Status Date / Time No Known Allergies Allergy Verified 12/27/22 14:54 Home Medications Medication Instructions Recorded Confirmed Type lysine 1,000 mg tablet 1,000 mg PO DAILY 11/22/21 12/27/22 History multivitamin 1 tablet PO DAILY 11/22/21 12/27/22 History cholecalciferol (vitamin D3) 125 5,000 unit PO DAILY 12/01/21 12/27/22 History mcg (5,000 unit) tablet (Vitamin D3) vitamin B complex (Complex B-100 1 tablet PO DAILY 12/01/21 12/27/22 History tablet,extended release) finasteride 5 mg tablet 5 mg PO DAILY #90 tabs 03/23/22 12/27/22 Rx amlodipine 5 mg-benazepril 40 mg 1 cap PO DAILY #90 caps 03/24/22 12/27/22 Rx capsule metformin 500 mg tablet,extended 1,000 mg PO BID #360 tabs 03/24/22 12/27/22 Rx release 24 hr metoprolol succinate 25 mg 25 mg PO DAILY #90 tabs 03/24/22 12/27/22 Rx tablet,extended release 24 hr rosuvastatin 20 mg tablet 20 mg PO DAILY #90 tabs 09/14/22 12/27/22 Rx Patient hx anesthesia problems: none Family hx anesthesia problems: none Results Review: All pre-operative results and documents have been reviewed as part of the pre-operative evaluation. [facility] Past Medical History Medical History (Updated 12/14/22 @ 08:26 by Josiah Wood MD) Acute non-recurrent maxillary sinusitis Benign microscopic hematuria BMI 30.0-30.9,adult BMI 31.0-31.9,adult BMI 32.0-32.9,adult BMI 34.0-34.9,adult BMI 35.0-35.9,adult Body mass index (bmi) 37.0-37.9, adult (04/16/19) BPH without obstruction/lower urinary tract symptoms Chronic constipation COVID-19 (03/02/22) Epididymitis, left (05/21/21) Essential (primary) hypertension Microalbuminuria (05/21/21) Ratio normal at 17 on 06/10/2022. Resolved Mixed hyperlipidemia Total cholesterol 136, triglycerides 98, HDL 44, LDL 74 on 06/10/2022. Cholesterol 140, triglycerides 144, HDL 38, LDL 78 on 12/09/2022. Neoplasm, bladder Obesity (BMI 30.0-34.9) Type 2 diabetes mellitus without complication, without long-term current use of insulin Fasting glucose 134 with hemoglobin A1c 6.0 and urine microalbumin ratio of 17 on 06/10/2022. Glucose 111 with hemoglobin A1c 6.2 on 12/09/2022. Umbilical hernia (~05/24/21) very small umbilical hernia easily reduced UTI (urinary tract infection) (~09/22/21) Vitamin B12 deficiency anemia Level normal at 942 with folic acid 22.6 and hemoglobin 13.6 on 06/10/2022. Family History Family History Mother Hypertension Sibling Family history of malignant neoplasm of breast Father Family history of emphysema, Onset Age: 83 Social History Social History (Updated 12/14/22 @ 07:59 by Evie Hopson MA) Smoking status: Never smoker Second hand tobacco smoke exposure: No Alcohol intake: never Substance use: never Substance use type: does not use Lack of Transportation: No Lack of Food: Never True Current Housing: I Have Housing Concerned About Future Housing: No Difficulty Paying Gas/Electric Bills: No Difficulty Paying for Meds: No Currently Unemployed: No Education: Bachelor's Degree Difficulty w/ Childcare or Family Care: No Living arrangements: with family Gender identity (if verbalized by the patient): Male Spiritual care concerns: No Anes - Eval Final PreProcedure Day of Procedure 01/02/23 15:23 Patient weight: obese Heart: regular rate and rhythm Lungs: clear to auscultation Airway: Mallampati scale class II Neurological: alert and oriented Last
[2023-01-03] VITALS (21 sets, daily range): BP systolic 115–175; BP diastolic 54–95; PULSE 52–88; RESP 10–20; TEMP 36.3–37.2; O2SAT 90–99
[2023-01-03 11:16] LABS: Glucose Point of Care 122 mg/dl (65-105)
[2023-01-03] MEDS: LACTATED RINGERS 1,000 ML 30 ML IV CONT (12:15)
--- NOTE | 2023-01-03 13:18 | WPDHPUPDATE1 ---
History and Physical Update Update Date/Time: 01/03/23 13:18 History and Physical has been reviewed, including an updated exam of the patient. There are NO changes in the patient's condition. Risks, benefits, and alternatives have been discussed and questions answered. Patient agrees to proceed with procedure.
[2023-01-03] MEDS: ceFAZolin 3 GM/D5W 100 ML 100 ML IVPB (13:57)
[2023-01-03] MEDS: LIDOCAINE HCL 2% GEL UROJET 10 ML PKG MUCOUS MEM (14:09)
--- NOTE | 2023-01-03 14:15 | W.PM.PROC2 ---
Procedure Note - Detailed Date of Procedure 01/03/23 Pre-op Diagnosis bladder cancer Post-op Diagnosis Same Procedure Performed Cystoscopy with transurethral resection of bladder tumor medium size area 3-4 cm Surgeon Meño Evans MD Anesthesia General Description of Procedure Patient is taken to the operative suite correctly identified. Once anesthesia was obtained was placed in dorsal lithotomy position and prepped draped usual sterile fashion. Twenty-four [place] Rican scope was inserted the bladder. He has proximally 4-5 tumors along the dome and anterior wall. These were resected. He also had an area of calcification on the prior resection site which was resected. Fulguration was achieved using electrocautery. There was good hemostasis at termination procedure. Sixteen [place]ican Friedman was then placed after 2% viscous lidocaine was placed in the bladder. Patient will receive gemcitabine in recovery room. He is instructed to call for path results we. This completes dictation. Please send a copy to my office Estimated Blood Loss 0 Packing No Pathology Yes Complications No immediate complications Condition Stable Disposition PACU
[2023-01-03] MEDS: SODIUM CHLORIDE 0.9% IV 23.7 ML, GEMCITABINE HCL 1,000 MG BLADDER ×2 (14:26)
--- NOTE | 2023-01-03 14:26 | SUR.PHASEI ---
chemo agent gemcitabin instilled into patient's bladder by Dr. Evans in PACU. Unable to scan medication on NOV.
--- NOTE | 2023-01-03 14:27 | W.PM.PROC2 ---
Procedure Note - Detailed Date of Procedure 01/03/23 Pre-op Diagnosis bladder cancer Post-op Diagnosis Same Procedure Performed Installation of gemcitabine Surgeon Meño Evans MD Anesthesia Other Description of Procedure Patient is in the recovery room. He has undergone a transurethral section of his bladder tumor. At this point a 16 Hungarian Friedman had been placed. Gemcitabine was then instilled without difficulty in a standard fashion. This will be drained after an hour and a voiding trial will then proceed. Estimated Blood Loss 0
[2023-01-03] MEDS: SODIUM CHLORIDE 0.9% IV 50 ML BAG 150 ML IRRIGATION (15:30)
--- NOTE | 2023-01-03 15:40 | SUR.PHASEI ---
Dr. Estrada notified of patient's urine being bloody, dark wine colored upon draining bladder. Dr. Evans ordered to irrigate bladder and monitor. Notify him if hematuria does not improve.
[2023-01-03 15:50] LABS: Glucose Point of Care 127 mg/dl (65-105)
--- NOTE | 2023-01-03 15:53 | SUR.PHASEI ---
Spoke with Dr. Evans, order recieved to initiate CBI and to insert a 3-way santoro.
--- NOTE | 2023-01-03 17:58 | PC.NURSE ---
This patient, Eze Jacob, was admitted to Medical Room 244-. Patient/family oriented to hospital policies and general routines including ID bracelet, bed and alarms, visiting hours, pain management, procedures, bathroom and other care routines, personal items, smoking policy, room service/diet, and visiting hours. Information on how to activate the Rapid Response Team has been discussed. Patient/Family are encouraged to report perceived risks to care and to ask questions if they do not understand what they are told or what they should do.
[2023-01-03] MEDS: DEXTROSE 5%/LACTATED RINGERS 1,000 ML 125 ML IV CONT (18:13)
[2023-01-03] MEDS: HYDROcodone/acetaminophen (*CRX) 5-325 MG TABLET 1 TAB PO (19:57)
[2023-01-03] MEDS: ceFAZolin 1 GM/NS 50 ML 1 GM/50 ML BAG IVPB (21:34)
[2023-01-04 03:31] VITALS: BP 109/61; PULSE 78; RESP 20; TEMP 36; O2SAT 96
[2023-01-04] MEDS: ceFAZolin 1 GM/NS 50 ML 1 GM/50 ML BAG IVPB (05:26)
[2023-01-04 05:39] LABS: Hematocrit 41.2 % (42.0-52.0); Hemoglobin 13.6 g/dL (14.0-18.0)
[2023-01-04] MEDS: metFORMIN HCL XR 500 MG TAB.SR.24H 1000 MG PO (08:01)
[2023-01-04] MEDS: FINASTERIDE 5 MG TABLET PO (08:01)
[2023-01-04] MEDS: DOCUSATE SODIUM 100 MG CAPSULE PO (08:01)
[2023-01-04] MEDS: amLODIPine BESYLATE 5 MG TABLET PO (08:02)
[2023-01-04] MEDS: lisinopriL 20 MG TABLET 40 MG PO (08:02)
[2023-01-04 09:35] VITALS: BP 130/58; PULSE 57; RESP 14; TEMP 37.1; O2SAT 94
--- NOTE | 2023-01-04 12:12 | WPDANESPN ---
Anes - Prog Note Post-Op Date/Time: 01/04/23 12:12 Vital Signs: Last Vital Signs Temp 37.1 C 01/04/23 09:35 Pulse 57 L 01/04/23 09:35 Resp 14 01/04/23 09:35 BP 130/58 L 01/04/23 09:35 Pulse Ox 94 01/04/23 09:35 O2 Del Method Room Air 01/04/23 08:00 O2 Flow Rate 8 01/03/23 14:30 Pain Score (VAS): 0 I/O: Intake & Output 01/03/23 01/04/23 01/04/23 23:59 07:59 15:59 Intake Total 6550 540 240 Output Total 7302 5005 Balance -775 -960 240 Laboratory Tests 01/04/23 05:17 01/03/23 01/04/23 14:32 05:17 Hgb 13.6 L Hct 41.2 L POC Capillary Glucose 127 H Patient Feedback: Patient satisfied with anesthetic care.
[2023-01-04] MEDS: CEPHALEXIN 500 MG CAPSULE PO (12:32)
--- NOTE | 2023-01-04 13:08 | PCCCNOTE ---
On 01/04/23, the student, [Vanessa Luis ], provided care and completed [facility] documentation on this patient. I have reviewed the student's documentation and agree with the findings.
== END 2023-01-04 13:05 | disposition home or self-care (01) ==
LOC: ANHSURGERY 14:17 → ANH2MED 17:50
PROVIDERS: PCP Family Medicine; Visit Provider Urology
PROC: 0TBB8ZX Excision of Bladder, Via Natural or Artificial Opening Endoscopic, Diagnostic (ICD-10-PCS; CPT 52204; principal; 2023-01-03 12:00)
DX: C67.8 Malignant neoplasm of overlapping sites of bladder (principal); E78.2 Mixed hyperlipidemia; I10 Essential (primary) hypertension; Z79.84 Long term (current) use of oral hypoglycemic drugs; N40.0 Benign prostatic hyperplasia without lower urinary tract symptoms; E11.9 Type 2 diabetes mellitus without complications; E66.9 Obesity, unspecified; Z68.33 Body mass index [BMI] 33.0-33.9, adult
CPT/HCPCS: 52235; 36415; 51720; 82948; 85014; 85018; 88305; A9270; J0690; J1100; J2250; J2405; J2704; J3010; J7120; J7121; J9201

== ENCOUNTER 2024-04-10 06:51 | Day surgery (SDC) | payer OTHER, SELFPAY ==
[2024-02-22 14:45] VITALS: BMI 32.3
[2024-03-28 09:39] VITALS: BMI 32.5
[2024-04-10 07:59] VITALS: BP 144/76; PULSE 57; RESP 16; TEMP 36.7; O2SAT 98; BMI 32.4
[2024-04-10 08:12] LABS: Glucose Point of Care 195 mg/dl (65-105)
[2024-04-10] MEDS: LACTATED RINGERS 1,000 ML 150 ML IV CONT (08:17)
--- NOTE | 2024-04-10 08:44 | WPDANESEPPF ---
Anes - Initial Pre Proc Eval Procedure: Operation Date: 04/10/24 09:00 Proposed Procedures p Diagnostic Colonoscopy - Chase Carrillo MD Date/Time: 04/10/24 08:44 Surgeon: Chase Carrillo MD Pre Op Diagnosis: History of Colon Polyps Patient Data Age: 64 Gender: M Height: 1.91 m Weight: 117.8 kg Last Vital Signs Temp 36.7 C 04/10/24 07:59 Pulse 57 L 04/10/24 07:59 Resp 16 04/10/24 07:59 BP 144/76 H 04/10/24 07:59 Pulse Ox 98 04/10/24 07:59 O2 Del Method Room Air 04/10/24 07:59 Allergies Allergy/AdvReac Type Severity Reaction Status Date / Time No Known Allergies Allergy Verified 04/10/24 07:52 Home Medications Medication Instructions Recorded Confirmed Type lysine 1,000 mg tablet 1,000 mg PO DAILY 11/22/21 04/10/24 History multivitamin 1 tablet PO DAILY 11/22/21 04/10/24 History cholecalciferol (vitamin D3) 125 5,000 unit PO DAILY 12/01/21 04/10/24 History mcg (5,000 unit) tablet (Vitamin D3) vitamin B complex (Complex B-100 1 tablet PO DAILY 12/01/21 04/10/24 History tablet,extended release) rosuvastatin 20 mg tablet 20 mg PO DAILY #90 tabs 09/05/23 04/10/24 Rx amlodipine 5 mg-benazepril 40 mg 1 cap PO DAILY #90 caps 02/26/24 04/10/24 Rx capsule finasteride 5 mg tablet 5 mg PO DAILY #90 tabs 02/26/24 04/10/24 Rx metformin 500 mg tablet,extended 1,000 mg PO BID #360 tabs 02/26/24 04/10/24 Rx release 24 hr metoprolol succinate 25 mg 25 mg PO DAILY #90 tabs 02/26/24 04/10/24 Rx tablet,extended release 24 hr terbinafine HCl 250 mg tablet 250 mg PO .COMPLEX #90 tabs 03/14/24 04/10/24 Rx Laboratory Tests 04/10/24 08:09 POC Capillary Glucose 195 H mg/dl (65-105) Patient hx anesthesia problems: none Family hx anesthesia problems: none Results Review: All pre-operative results and documents have been reviewed as part of the pre-operative evaluation. [facility] Past Medical History Medical History Acute non-recurrent maxillary sinusitis Benign microscopic hematuria BMI 30.0-30.9,adult BMI 31.0-31.9,adult BMI 32.0-32.9,adult BMI 34.0-34.9,adult BMI 35.0-35.9,adult Body mass index (bmi) 37.0-37.9, adult (04/16/19) BPH without obstruction/lower urinary tract symptoms Chronic constipation Chronic pain in left shoulder COVID-19 (03/02/22) COVID-19 (~05/11/23) 2nd episode Epididymitis, left (05/21/21) Essential (primary) hypertension Microalbuminuria (05/21/21) Ratio normal at 17 on 06/10/2022. Resolved Mixed hyperlipidemia Total cholesterol 136, triglycerides 98, HDL 44, LDL 74 on 06/10/2022. Cholesterol 140, triglycerides 144, HDL 38, LDL 78 on 12/09/2022. total cholesterol 136, triglycerides 296, HDL 32, LDL 68 with ratio 4.3 on 06/23/2023. cholesterol 108, HDL 43, triglycerides 71, LDL 50 with ratio 2.5 on 01/22/2024. Nail fungus (~2022) recurrent fungus right great toenail Neoplasm, bladder urinary bladder cancer treated by urologist with surgeries and BCG instillation Obesity (BMI 30.0-34.9) Type 2 diabetes mellitus without complication, without long-term current use of insulin Fasting glucose 134 with hemoglobin A1c 6.0 and urine microalbumin ratio of 17 on 06/10/2022. Glucose 111 with hemoglobin A1c 6.2 on 12/09/2022. A1c 0.2 glucose 181 with hemoglobin A1c 7.2 on 06/23/2023. Fasting glucose 141 with hemoglobin A1c 7.4 on 01/22/2024. Umbilical hernia (~05/24/21) very small umbilical hernia easily reduced UTI (urinary tract infection) (~09/22/21) Vitamin B12 deficiency anemia Level normal at 942 with folic acid 22.6 and hemoglobin 13.6 on 06/10/2022. Level normal at 758 with hemoglobin 13.7 on 06/23/2023. Family History Family History Mother Hypertension Sibling Family history of malignant neoplasm of breast Father Family history of emphysema, Onset Age: 83 Social History Social History (Reviewed 04/10
--- NOTE | 2024-04-10 08:45 | PM.HPGS ---
History of Present Illness History of Present Illness Consent: Risks, benefits, and alternatives have been discussed and questions answered. Patient agrees to proceed with procedure. Chief complaint: History of Colon Polyps Narrative: Eze Jacob is a 64 year old male presents for screening colonoscopy. Patient was found to have several colon polyps at the time of last exam 3 years ago. Patient's current weight appetite and bowel movements are normal. Patient denies abdominal pain. He has had no bleeding. Family history noncontributory. Review of Systems Review of Systems: All systems reviewed & are unremarkable except as noted in HPI and below PMFSH Past Medical History Medical History Acute non-recurrent maxillary sinusitis Benign microscopic hematuria BMI 30.0-30.9,adult BMI 31.0-31.9,adult BMI 32.0-32.9,adult BMI 34.0-34.9,adult BMI 35.0-35.9,adult Body mass index (bmi) 37.0-37.9, adult (04/16/19) BPH without obstruction/lower urinary tract symptoms Chronic constipation Chronic pain in left shoulder COVID-19 (03/02/22) COVID-19 (~05/11/23) 2nd episode Epididymitis, left (05/21/21) Essential (primary) hypertension Microalbuminuria (05/21/21) Ratio normal at 17 on 06/10/2022. Resolved Mixed hyperlipidemia Total cholesterol 136, triglycerides 98, HDL 44, LDL 74 on 06/10/2022. Cholesterol 140, triglycerides 144, HDL 38, LDL 78 on 12/09/2022. total cholesterol 136, triglycerides 296, HDL 32, LDL 68 with ratio 4.3 on 06/23/2023. cholesterol 108, HDL 43, triglycerides 71, LDL 50 with ratio 2.5 on 01/22/2024. Nail fungus (~2022) recurrent fungus right great toenail Neoplasm, bladder urinary bladder cancer treated by urologist with surgeries and BCG instillation Obesity (BMI 30.0-34.9) Type 2 diabetes mellitus without complication, without long-term current use of insulin Fasting glucose 134 with hemoglobin A1c 6.0 and urine microalbumin ratio of 17 on 06/10/2022. Glucose 111 with hemoglobin A1c 6.2 on 12/09/2022. A1c 0.2 glucose 181 with hemoglobin A1c 7.2 on 06/23/2023. Fasting glucose 141 with hemoglobin A1c 7.4 on 01/22/2024. Umbilical hernia (~05/24/21) very small umbilical hernia easily reduced UTI (urinary tract infection) (~09/22/21) Vitamin B12 deficiency anemia Level normal at 942 with folic acid 22.6 and hemoglobin 13.6 on 06/10/2022. Level normal at 758 with hemoglobin 13.7 on 06/23/2023. Family History Family History Mother Hypertension Sibling Family history of malignant neoplasm of breast Father Family history of emphysema, Onset Age: 83 Social History Social History Smoking status: Never smoker Second hand tobacco smoke exposure: No Alcohol intake: never Substance use: never Substance use type: does not use Lack of Transportation: No Lack of Food: Never True Current Housing: I Have Housing Concerned About Future Housing: No Difficulty Paying Gas/Electric Bills: No Difficulty Paying for Meds: No Currently Unemployed: No Education: Bachelor's Degree Difficulty w/ Childcare or Family Care: No Living arrangements: with family Gender identity (if verbalized by the patient): Male Spiritual care concerns: No Meds Home Medications and Allergies Home Medications Medication Instructions Recorded Confirmed Type lysine 1,000 mg tablet 1,000 mg PO DAILY 11/22/21 04/10/24 History multivitamin 1 tablet PO DAILY 11/22/21 04/10/24 History cholecalciferol (vitamin D3) 125 5,000 unit PO DAILY 12/01/21 04/10/24 History mcg (5,000 unit) tablet (Vitamin D3) vitamin B complex (Complex B-100 1 tablet PO DAILY 12/01/21 04/10/24 History tablet,extended release) rosuvastatin 20 mg tablet 20 mg PO DAILY #90 tabs 09/05/23 04/10/24 Rx amlodipine 5 mg-benazepril 40 mg 1 cap PO DAILY #90 ca
[2024-04-10] MEDS: SIMETHICONE ORAL SUSPENSION 20 MG/0.3 ML 30 ML BOTTLE 0.6 ML IRRIGATION (09:00)
[2024-04-10 09:08] VITALS: BP 129/73; PULSE 54; RESP 16; O2SAT 100
[2024-04-10 09:18] VITALS: BP 127/81; PULSE 50; RESP 20; O2SAT 98
--- NOTE | 2024-04-10 09:19 | WPDANESPN ---
Anes - Prog Note Post-Op Date/Time: 04/10/24 09:19 Cardiovascular status: normal Respiratory status: normal Airway patency: baseline Mental status: baseline Post-Op hydration status: normal Vital Signs: Last Vital Signs Temp 36.7 C 04/10/24 07:59 Pulse 54 L 04/10/24 09:16 Resp 16 04/10/24 09:16 BP 129/73 04/10/24 09:16 Pulse Ox 100 04/10/24 09:16 O2 Del Method Room Air 04/10/24 09:16 Pain Score (VAS): 0/10 I/O: Intake & Output 04/09/24 04/10/24 04/10/24 23:59 07:59 15:59 Intake Total 500 Balance 500 04/10/24 08:09 POC Capillary Glucose 195 H Patient Feedback: Patient satisfied with anesthetic care.
[2024-04-10 09:28] VITALS: BP 129/83; PULSE 50; RESP 20; O2SAT 97
== END 2024-04-10 09:45 | disposition home or self-care (01) ==
PROVIDERS: PCP Family Medicine; Visit Provider Internal Medicine Gastroenterology
PROC: 0DJD8ZZ Inspection of Lower Intestinal Tract, Via Natural or Artificial Opening Endoscopic (ICD-10-PCS; CPT 45378; principal; 2024-04-10 09:00)
DX: Z86.010 Personal history of colon polyps (principal); K64.8 Other hemorrhoids
CPT/HCPCS: 45378

== ENCOUNTER 2024-09-06 13:37 | Emergency (ER) | payer OTHER, SELFPAY ==
[2024-09-06 13:56] VITALS: BP 145/78; PULSE 68; RESP 16; TEMP 36.4; O2SAT 98
--- NOTE | 2024-09-06 14:05 | ED.WOUNDLAC ---
HPI - Wound/Laceration General Chief Complaint: Wound/Laceration Stated Complaint: finger laceration Time Seen by Provider: 09/06/24 14:05 Source: patient Mode of arrival: ambulatory Limitations: no limitations History of Present Illness HPI narrative: 64-year-old male presents with laceration to right ring finger. Injury happened approximately 1 hour prior to arrival. Patient states he cut himself on metal fan while opening pain it is. Bleeding controlled on arrival. All systems reviewed and negative except as noted above. Related Data Home Medications ?Medication ?Instructions ?Recorded ?Confirmed ?Last Taken ?Type lysine 1,000 mg tablet 1,000 mg PO DAILY 11/22/21 09/06/24 11/23/21 History multivitamin 1 tablet PO DAILY 11/22/21 09/06/24 07/01/22 History cholecalciferol (vitamin D3) 125 5,000 unit PO DAILY 12/01/21 09/06/24 Unknown History mcg (5,000 unit) tablet (Vitamin D3) vitamin B complex (Complex B-100 1 tablet PO DAILY 12/01/21 09/06/24 Unknown History tablet,extended release) Allergies Allergy/AdvReac Type Severity Reaction Status Date / Time No Known Allergies Allergy Verified 09/06/24 13:52 Review of Systems Review of Systems: CONSTITUTIONAL: Denies fever, chills, or sweats. EYES: Denies visual changes, redness, or discharge. ENT: Denies rhinorrhea, congestion, sore throat, or otalgia. CARDIOVASCULAR: Denies chest pain, palpitations, or edema. RESPIRATORY: Denies cough or dyspnea. GASTROINTESTINAL: Denies abdominal pain, nausea, vomiting, or diarrhea. GENITOURINARY: Denies dysuria or hematuria. SKIN: Denies rash or itching. Reports laceration to right ring finger. MUSCULOSKELETAL: Denies back pain, joint pain, or myalgia. NEUROLOGIC: Denies headache, numbness, or weakness. PSYCHIATRIC: Denies anxiety or depression. All other systems reviewed are negative, except as documented in HPI. [facility] Past Medical History Medical History Acute non-recurrent maxillary sinusitis Benign microscopic hematuria BMI 30.0-30.9,adult BMI 31.0-31.9,adult BMI 32.0-32.9,adult BMI 34.0-34.9,adult BMI 35.0-35.9,adult Body mass index (bmi) 37.0-37.9, adult (04/16/19) BPH without obstruction/lower urinary tract symptoms Chronic constipation Chronic pain in left shoulder COVID-19 (03/02/22) COVID-19 (~05/11/23) 2nd episode Epididymitis, left (05/21/21) Essential (primary) hypertension Microalbuminuria (05/21/21) Ratio normal at 17 on 06/10/2022. Resolved Mixed hyperlipidemia Total cholesterol 136, triglycerides 98, HDL 44, LDL 74 on 06/10/2022. Cholesterol 140, triglycerides 144, HDL 38, LDL 78 on 12/09/2022. total cholesterol 136, triglycerides 296, HDL 32, LDL 68 with ratio 4.3 on 06/23/2023. cholesterol 108, HDL 43, triglycerides 71, LDL 50 with ratio 2.5 on 01/22/2024. Nail fungus (~2022) recurrent fungus right great toenail Neoplasm, bladder urinary bladder cancer treated by urologist with surgeries and BCG instillation Obesity (BMI 30.0-34.9) Type 2 diabetes mellitus without complication, without long-term current use of insulin Fasting glucose 134 with hemoglobin A1c 6.0 and urine microalbumin ratio of 17 on 06/10/2022. Glucose 111 with hemoglobin A1c 6.2 on 12/09/2022. A1c 0.2 glucose 181 with hemoglobin A1c 7.2 on 06/23/2023. Fasting glucose 141 with hemoglobin A1c 7.4 on 01/22/2024. Umbilical hernia (~05/24/21) very small umbilical hernia easily reduced UTI (urinary tract infection) (~09/22/21) Vitamin B12 deficiency anemia Level normal at 942 with folic acid 22.6 and hemoglobin 13.6 on 06/10/2022. Level normal at 758 with hemoglobin 13.7 on 06/23/2023. Family History Family History Mother Hypertension Sibling Family history of malignant neoplasm of breast Father Family history of emphysema, Onset Age: 83 Social History Social History Smoking status: Never smoker Second hand tobacco smoke exposure: No Alcohol intake: never Substance use: never Substance use type: does not use Lack of Transportation: No Lack of Food: Never True Current Housing: I Have Housing Concerned About Future Housing: No Difficulty Paying Gas/Electric Bills: No Difficulty Paying for Meds: No Currently Unemployed: No Education: Bachelor's Degree Difficulty w/ Childcare or Family Care: No Living arrangements: with family Gender identity (if verbalized by the patient): Male Spiritual care concerns: No Comments At time of signature, agree with nursing past medical, surgical, social and family history. There is no relevant family history pertinent to the presenting complaint. Exam Narrative: GENERAL: This is a well-nourished, well-developed patient, in no apparent distress. HEAD: normocephalic, atraumatic. EYES: PERRL. Sclera clear/white. Vision is grossly intact. EARS: External ears normal NOSE: External nose normal NECK: Neck supple, non-tender without lymphadenopathy, masses or thyromegaly. CARDIOVASCULAR: Regular rate and rhythm without murmurs, gallops, or rubs. RESPIRATORY: Clear to auscultation. Breath sounds equal bilaterally. No wheezes, rales, or rhonchi. SKIN: warm, Dry,with no suspicious lesions or rash, good texture and turgor. Superficial laceration to medial, distal aspect right ring finger. Bleeding controlled. NEURO: awake, alert, and oriented to person, place and time. There were no obvious focal neurologic abnormalities. EXTREMITIES: No joint tenderness, effusion, or edema noted. Course Course Level of Care: Express Care Visit Vital Signs Vital signs: Vital Signs Temperature 36.4 C L 09/06/24 13:56 Pulse Rate 68 09/06/24 13:56 Respiratory Rate 16 09/06/24 13:56 Blood Pressure 145/78 H 09/06/24 13:56 Pulse Oximetry 98 09/06/24 13:56 Temperature 36.4 C L 09/06/24 13:56 Pulse Rate 68 09/06/24 13:56 Respiratory Rate 16 09/06/24 13:56 Blood Pressure 145/78 H 09/06/24 13:56 Pulse Oximetry 98 09/06/24 13:56 Reviewed Procedures Laceration Laceration 1: Date: 09/06/24 Time: 14:05 Site: hand (Ring finger) Side (If applicable): right Size (cm): 0.5 Description: linear Depth: simple, single layer ====== Skin Level ====== Skin layer closed with: steri strips ====== Subcutaneous Layer ====== ====== Muscle Layer ====== ====== Tendon Layer ====== Dressin Steri-Strips placed to superficial laceration right ring finger. MDM - Wound/Laceration MDM Narrative Medical decision making narrative: Patient is aware of diagnosis, understands and agrees to treatment plan. Anticipatory guidance given. Patient agrees to follow-up as directed and is aware of reasons to seek care at the emergency department. Portions of this record may have been created with voice recognition software Superficial laceration of right ring finger was repaired with Steri-Strips. Sutures were not required. Patient agreed to plan of care. Discharge Plan Discharge Clinical Impression: Laceration of right ring finger Qualifiers: Encounter type: initial encounter Damage to nail status: without damage Foreign body presence: without foreign body Qualified Code(s): S61.214A - Laceration without foreign body of right ring finger without damage to nail, initial encounter Patient Disposition: Home, Self-Care Condition: Stable Instructions: Finger Laceration (ED), Steristrips (ED) Additional Instructions: Keep Steri-Strips clean and dry. If they do become wet pat dry with towel. Keep Steri-Strips in place for 5-7 days. Follow-up with your primary care physician for any signs of infection such as redness, warmth, swelling, drainage. Patient Language: Korean Prescriptions: No Action cholecalciferol (vitamin D3) [Vitamin D3] 125 mcg (5,000 unit) tablet 5,000 unit PO DAILY Complex B-100 Tablet Extended Release 1 tablet PO DAILY multivitamin Tablet 1 tablet PO DAILY lysine 1,000 mg Tablet 1,000 mg PO DAILY amlodipine-benazepril 5-40 mg capsule 1 cap PO DAILY Qty: 90 3RF finasteride 5 mg tablet 5 mg PO DAILY Qty: 90 3RF metformin 500 mg tablet extended release 24 hr 1,000 mg PO BID Qty: 360 3RF metoprolol succinate 25 mg tablet extended release 24 hr 25 mg PO DAILY Qty: 90 3RF terbinafine HCl 250 mg tablet 250 mg PO .COMPLEX Qty: 90 1RF Rx Instructions: 250 mg orally take once daily for 90 days been off for 90 days and repeat 90 days for nail fungus; rosuvastatin 20 mg tablet 20 mg PO DAILY Qty: 90 3RF Follow-up/Referrals: Josiah Wood MD [Primary Care Provider] - Time of Disposition: 14:15
== END 2024-09-06 14:23 | disposition home or self-care (01) ==
PROVIDERS: Emergency Provider Nurse Practitioner Family; PCP Family Medicine
DX: S61.214A Laceration without foreign body of right ring finger without damage to nail, initial encounter (principal); W26.8XXA Contact with other sharp object(s), not elsewhere classified, initial encounter; I10 Essential (primary) hypertension; E11.9 Type 2 diabetes mellitus without complications; E53.8 Deficiency of other specified B group vitamins
CPT/HCPCS: 12001; 99212; G0463

== ENCOUNTER 2024-11-11 11:51 | Emergency (ER) | payer OTHER, SELFPAY ==
--- NOTE | ~2024-11-11 | CT_ITS ---
CLINICAL INDICATION: Abdominal, right hip, and lower back pain after a fall COMPARISON: 11/05/2021. TECHNIQUE: Multiple contiguous axial images of the abdomen and pelvis were performed following the ad ministration of with 100 mL Omnipaque-350 intravenous contrast The dose-length product (DLP) was 1123.86 mGy-cm. Automated exposure control and iterative reconstruction technique were employed. FINDINGS/OBSERVATIONS: Visualized lower thorax: The bilateral lung bases are clear. The heart is of normal size, without pericardial effusion. Small hiatal hernia is present. Liver: The liver demonstrates homogeneous enhancement and is enlarged measuring 22 cm in longitudinal dimens ion. Gallbladder and biliary system: The gallbladder is only minimally distended, and otherwise unremarkable. Pancreas: The pancreas enhances homogeneously without ductal dilatation. Spleen: The spleen enhances homogeneously and is enlarged measuring 13 cm in longitudinal dimension. Kidneys: The bilateral kidneys enhance symmetrically without hydronephrosis or renal calculi. Adrenal glands: Unremarkable. Gastrointestinal tract: Fecal stasis within the colon. Appendix: The air-filled appendix is of normal caliber (axial series, images 107 through 119). A large appendic olith is identified at the tip of the appendix. Vasculature: Calcified atherosclerotic disease without aneurysmal dilatation. Lymph nodes: No pathologically enlarged or morphologically suspicious lymph nodes within the retroperitoneum or at the root of the mesentery. Pelvic structures: The bladder is distended, and otherwise unremarkable. Resolution of the previously identified mass along the posterior wall of the bladder. The prostate gland within the upper limits of normal for size, and contains bulky calcifications. Body wall and musculoskeletal: Small bowel containing, nonobstructing umbilical hernia, an interval change from prior. Compression of the superior endplate of the vertebral body of L1, an interval change from 2021 examin ation, although age indeterminate. Degenerative disease is otherwise demonstrated, without additional fracture deformities. IMPRESSION: Compression of the superior endplate of the vertebral body of L1, an interval change from 2021 althou gh age indeterminate. Clinical correlation is needed regarding point tenderness in this location. Hepatosplenomegaly. Examination is otherwise unremarkable. Reviewed, dictated and finalized at location A. IMPRESSION: Compression of the superior endplate of the vertebral body of L1, an interval c hange from 2021 although age indeterminate. Clinical correlation is needed regarding point tenderness in this location. Hepatosplenomegaly. Examination is otherwise unremarkable.
[2024-11-11 11:56] VITALS: BP 138/93; PULSE 75; RESP 16; TEMP 36.5; O2SAT 98
--- NOTE | 2024-11-11 13:07 | ED.FALL ---
HPI - Fall General Chief Complaint: Fall Stated Complaint: Injury to right hip/lower back Time Seen by Provider: 11/11/24 12:53 Source: patient Mode of arrival: ambulatory Limitations: no limitations History of Present Illness HPI Narrative: This is a 64-year-old male that presents to the emergency department after a fall last night. Reports he was running backwards playing pickle ball and fell onto his bottom. Reports pain in his low back, right hip, lower abdomen. Denies hitting his head or loss of consciousness. Denies vision changes, vomiting, numbness, weakness. Related Data Home Medications ?Medication ?Instructions ?Recorded ?Confirmed ?Last Taken ?Type lysine 1,000 mg tablet 1,000 mg PO DAILY 11/22/21 09/10/24 11/23/21 History multivitamin 1 tablet PO DAILY 11/22/21 09/10/24 07/01/22 History cholecalciferol (vitamin D3) 125 5,000 unit PO DAILY 12/01/21 09/10/24 Unknown History mcg (5,000 unit) tablet (Vitamin D3) vitamin B complex (Complex B-100 1 tablet PO DAILY 12/01/21 09/10/24 Unknown History tablet,extended release) Allergies Allergy/AdvReac Type Severity Reaction Status Date / Time No Known Allergies Allergy Verified 11/11/24 11:53 Review of Systems Review of Systems: CONSTITUTIONAL: Denies fever GASTROINTESTINAL: Reports abdominal pain. Denies nausea, vomiting GENITOURINARY: Denies dysuria or hematuria. MUSCULOSKELETAL: Reports back pain, joint pain, and myalgia. NEUROLOGIC: Denies numbness, or weakness. All systems reviewed & are unremarkable except as noted in HPI and below [facility] Past Medical History Medical History (Updated 11/11/24 @ 14:15 by Olivia Claros PA-C) Hydrocele, right Hypersomnia Controlled type 2 diabetes mellitus with hyperglycemia, without long-term current use of insulin Fasting glucose 134 with hemoglobin A1c 6.0 and urine microalbumin ratio of 17 on 06/10/2022. Glucose 111 with hemoglobin A1c 6.2 on 12/09/2022. A1c 0.2 glucose 181 with hemoglobin A1c 7.2 on 06/23/2023. Fasting glucose 141 with hemoglobin A1c 7.4 on 01/22/2024. Fasting glucose 270 with hemoglobin A1c 8.8 and microalbumin ratio of 48 with GFR 95 on 09/06/2024. BMI 33.0-33.9,adult Chronic pain in left shoulder Nail fungus (~2022) recurrent fungus right great toenail COVID-19 (~05/11/23) 2nd episode Acute non-recurrent maxillary sinusitis BMI 34.0-34.9,adult BMI 31.0-31.9,adult COVID-19 (03/02/22) Neoplasm, bladder urinary bladder cancer treated by urologist with surgeries and BCG instillation BMI 30.0-30.9,adult Obesity (BMI 30.0-34.9) UTI (urinary tract infection) (~09/22/21) Umbilical hernia (~05/24/21) very small umbilical hernia easily reduced Benign microscopic hematuria Microalbuminuria (05/21/21) Ratio normal at 17 on 06/10/2022. Resolved BMI 32.0-32.9,adult Chronic constipation Epididymitis, left (05/21/21) BMI 35.0-35.9,adult Vitamin B12 deficiency anemia Level normal at 942 with folic acid 22.6 and hemoglobin 13.6 on 06/10/2022. Level normal at 758 with hemoglobin 13.7 on 06/23/2023. Level normal at 1118 with hemoglobin 14.1 on 09/06/2024. BPH without obstruction/lower urinary tract symptoms Body mass index (bmi) 37.0-37.9, adult (04/16/19) Essential (primary) hypertension Mixed hyperlipidemia Total cholesterol 136, triglycerides 98, HDL 44, LDL 74 on 06/10/2022. Cholesterol 140, triglycerides 144, HDL 38, LDL 78 on 12/09/2022. total cholesterol 136, triglycerides 296, HDL 32, LDL 68 with ratio 4.3 on 06/23/2023. cholesterol 108, HDL 43, triglycerides 71, LDL 50 with ratio 2.5 on 01/22/2024. Cholesterol 169, triglycerides 402, HDL 35, LDL not calculated with ratio 4.8 on 09/06/2024. Type 2 diabetes mellitus without complication, without long-term current use of insulin Fasting glucose 134 with hemoglobin A1c 6.0 and urine microalbumin ratio of 17 on 06/10/2022. Glucose 111 with hemoglobin A1c 6.2 on 12/09/2022. A1c 0.2 glucose 181 with hemoglobin A1c 7.2 on 06/23/2023. Fasting glucose 141 with hemoglobin A1c 7.4 on 01/22/2024. Fasting glucose 270 with hemoglobin A1c 8.8 and microalbumin ratio of 48 with GFR 95 on 09/06/2024. Family History Family History Mother Hypertension Sibling Family history of malignant neoplasm of breast Father Family history of emphysema, Onset Age: 83 Social History Social History Smoking status: Never smoker Second hand tobacco smoke exposure: No Alcohol intake: never Substance use: never Substance use type: does not use Lack of Transportation: No Lack of Food: Never True Current Housing: I Have Housing Concerned About Future Housing: No Difficulty Paying Gas/Electric Bills: No Difficulty Paying for Meds: No Currently Unemployed: No Education: Bachelor's Degree Difficulty w/ Childcare or Family Care: No Living arrangements: with family Gender identity (if verbalized by the patient): Male Spiritual care concerns: No Exam Narrative: GENERAL: Well-appearing, well-nourished, and in no acute distress. HEAD: Normocephalic, atraumatic. EYES: EOMI. CHEST: Clear to auscultation. No respiratory distress. No wheezes rales or rhonchi HEART: Regular rate and rhythm. No murmur heard. Normal peripheral pulses. ABDOMEN: Soft, nontender, nondistended, normal active bowel sounds. BACK: Tender to palpation of midline lumbar spine EXTREMITIES: Normal range of motion. No edema. SKIN: Warm, dry, no rash. NEURO: No focal deficits. Alert and oriented x3. Normal gait PSYCH: Normal mood and affect Course Course Emergency Course: Patient updated on workup and agrees with plan of care Vital Signs Vital signs: Vital Signs Temperature 97.7 F 11/11/24 11:56 Pulse Rate 75 11/11/24 11:56 Respiratory Rate 16 11/11/24 11:56 Blood Pressure 138/93 H 11/11/24 11:56 Pulse Oximetry 98 11/11/24 11:56 Oxygen Delivery Room Air 11/11/24 11:56 Temperature 97.7 F 11/11/24 11:56 Pulse Rate 72 11/11/24 14:40 Respiratory Rate 18 11/11/24 14:40 Blood Pressure 128/86 11/11/24 14:40 Pulse Oximetry 99 11/11/24 14:40 Oxygen Delivery Room Air 11/11/24 11:56 MDM - Fall MDM Narrative Medical decision making narrative: Patient presents to the ER after a fall last night with low back pain, pelvic pain, abdominal pain. His vitals are stable. He is neurologically intact. CBC and CMP without concerning findings. CT abdomen and pelvis shows L1 compression fracture. Patient updated on workup and agrees with plan of care. He is to follow up with PCP and/or neurosurgery. Will also be given the information for follow up with pain management. He was given warnings to return to the ER Differential Diagnosis Differential diagnosis: Likely other (compression fracture, contusion, muscle strain) Lab Data Attestation: I reviewed the patient's lab results. 11/11/24 13:18 11/11/24 13:18 Labs: Lab Results 11/11/24 Range/Units 13:18 WBC 7.3 (4.5-10.0) K/mm3 RBC 4.77 (4.6-6.20) M/mm3 Hgb 14.3 (14.0-18.0) g/dL Hct 43.2 (42.0-52.0) % MCV 90.6 (80-100) fl MCH 30.0 (26-34) pg MCHC 33.1 (32-36) g/dl RDW 13.2 (11.5-14.5) % Plt Count 176 (150-375) k/mm3 MPV 11.4 H (7.4-10.4) fl Immature Gran % (Auto) 0.3 (0-0.5) % Neut % (Auto) 64.9 (45.5-73.1) % Lymph % (Auto) 21.5 (18.3-44.2) % [place] % (Auto) 8.1 (2.6-8.5) % Eos % (Auto) 4.5 H (0-4.4) % Baso % (Auto) 0.7 (0.2-1.2) % Lymph # (Auto) 1.56 (0.9-3.2) K/mm3 [place] # (Auto) 0.6 (0.1-0.6) K/mm3 Eos # (Auto) 0.3 (0-0.3) K/mm3 Baso # (Auto) 0.1 (0.0-0.1) K/mm3 Abs Immat Gran (auto) 0.02 (0.00-0.031) K/mm3 Absolute Neuts (auto) 4.7 (1.3-6.7) K/mm3 Absolute Nucleated RBC 0.000 (0.0-0.012) K/mm3 Nucleated RBC % 0.0 (0.0-0.2) % Sodium 139 (137-145) mmol/L Potassium 4.5 (3.4-5.0) mmol/L Chloride 102 (98-107) mmol/L Carbon Dioxide 28 (22-30) mmol/L Anion Gap 9 (4-12) mmol/L BUN 18 (9-20) mg/dL Creatinine 0.89 (0.7-1.3) mg/dL Estim Creat Clear Calc 99 ml/min Estimated GFR > 60 (59 - ) Glucose 136 H (65-110) mg/dL Calcium 10.4 H (8.4-10.2) mg/dL Total Bilirubin 0.9 (0.2-1.3) mg/dL AST 31 (17-59) U/L ALT 42 (6-50) U/L Alkaline Phosphatase 55 (38-126) U/L Total Protein 8.0 (6.3-8.2) g/dL Albumin 4.8 (3.5-5.1) g/dL Imaging Data Radiologist's impression: ITS Impressions Abdomen/Pelvis CT 11/11/24 13:48 IMPRESSION: Compression of the superior endplate of the vertebral body of L1, an interval change from 2021 although age indeterminate. Clinical correlation is needed regarding point tenderness in this location. Hepatosplenomegaly. Examination is otherwise unremarkable. Critical Care Time Critical Care Time Critical Care Time: No Discharge Plan Discharge Clinical Impression: Compression of lumbar vertebra Qualifiers: Encounter type: initial encounter Lumbar vertebra fracture level: L1 Qualified Code(s): S32.010A - Wedge compression fracture of first lumbar vertebra, initial encounter for closed fracture Patient Disposition: Home, Self-Care Condition: Stable Instructions: Vertebral Compression Fracture (ED) Additional Instructions: Return to the ER if you experience weakness, numbness, bowel/bladder incontinence, or any other symptoms that are concerning to you Rest, use ice/heat, take anti-inflammatories (Aleve, Ibuprofen, Naproxen, etc) or Tylenol as needed for pain as well as prescribed pain medication as needed Follow up with your primary care doctor and/or neurosurgery You may also follow up with Interventional pain consultants if needed Patient Language: Niuean Prescriptions: New hydrocodone-acetaminophen 5-325 mg tablet 1 tablet PO Q6H PRN (Reason: pain) Qty: 20 0RF No Action cholecalciferol (vitamin D3) [Vitamin D3] 125 mcg (5,000 unit) tablet 5,000 unit PO DAILY Complex B-100 Tablet Extended Release 1 tablet PO DAILY multivitamin Tablet 1 tablet PO DAILY lysine 1,000 mg Tablet 1,000 mg PO DAILY amlodipine-benazepril 5-40 mg capsule 1 cap PO DAILY Qty: 90 3RF finasteride 5 mg tablet 5 mg PO DAILY Qty: 90 3RF metformin 500 mg tablet extended release 24 hr 1,000 mg PO BID Qty: 360 3RF metoprolol succinate 25 mg tablet extended release 24 hr 25 mg PO DAILY Qty: 90 3RF terbinafine HCl 250 mg tablet 250 mg PO .COMPLEX Qty: 90 1RF Rx Instructions: 250 mg orally take once daily for 90 days been off for 90 days and repeat 90 days for nail fungus; rosuvastatin 20 mg tablet 20 mg PO DAILY Qty: 90 3RF Ozempic 0.25 mg or 0.5 mg (2 mg/3 mL) pen injector 0.5 mg subcut WEEKLY Qty: 9 3RF Rx Instructions: started with sample in the office 09/10/2024. Plan to titrate. Follow-up/Referrals: Chester Rendon MD [Physician] - Josiah Wood MD [Primary Care Provider] -
[2024-11-11 13:25] LABS: Basophils Absolute Auto 0.1 K/mm3 (0.0-0.1); Basophils Percent Auto 0.7 % (0.2-1.2); Eosinophils Absolute Auto 0.3 K/mm3 (0-0.3); Eosinophils Percent Auto 4.5 % (0-4.4); Hematocrit 43.2 % (42.0-52.0); Hemoglobin 14.3 g/dL (14.0-18.0); Immature Granulocyte Absolute 0.02 K/mm3 (0.00-0.031); Immature Granulocyte Percent A 0.3 % (0-0.5); Lymphocytes Absolute Auto 1.56 K/mm3 (0.9-3.2); Lymphocytes Percent Auto 21.5 % (18.3-44.2); Mean Corpuscular HGB Conc 33.1 g/dl (32-36); Mean Corpuscular Volume 90.6 fl (80-100); Mean Platelet Volume 11.4 fl (7.4-10.4); Monocytes Absolute Auto 0.6 K/mm3 (0.1-0.6); Monocytes Percent Auto 8.1 % (2.6-8.5); Neutrophils Absolute Auto 4.7 K/mm3 (1.3-6.7); Neutrophils Percent Auto 64.9 % (45.5-73.1); Platelet Count Result 176 k/mm3 (150-375); Red Blood Count 4.77 M/mm3 (4.6-6.20); Red Cell Distribution Width 13.2 % (11.5-14.5); White Blood Count 7.3 K/mm3 (4.5-10.0)
[2024-11-11 13:36] LABS: Alanine Aminotransferase 42 U/L (6-50); Albumin Level 4.8 g/dL (3.5-5.1); Alkaline Phosphatase 55 U/L (38-126); Anion Gap 9 mmol/L (4-12); Aspartate Amino Transferase 31 U/L (17-59); Bilirubin,Total 0.9 mg/dL (0.2-1.3); Blood Urea Nitrogen 18 mg/dL (9-20); Calcium 10.4 mg/dL (8.4-10.2); Carbon Dioxide 28 mmol/L (22-30); Chloride 102 mmol/L (98-107); Estimated CRCL calculation 99 ml/min; Estimated Glomerular Filt Rate > 60; Glucose 136 mg/dL (65-110); Potassium 4.5 mmol/L (3.4-5.0); Sodium 139 mmol/L (137-145)
--- OUTSIDE RECORDS SUMMARY | 2024-11-11 13:54 | XMS_ITS | Encounter Summary ---
Author Organization [employer] Address 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
--- OUTSIDE RECORDS SUMMARY | 2024-11-11 13:54 | XMS_ITS | Clinical Summary ---
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
[2024-11-11] MEDS: HYDROcodone/acetaminophen (*CRX) 5-325 MG TABLET 1 TAB PO (14:11)
[2024-11-11 14:40] VITALS: BP 128/86; PULSE 72; RESP 18; O2SAT 99
--- OUTSIDE RECORDS SUMMARY | 2024-11-11 15:31 | XMS_ITS | Encounter Summary ---
Author Organization [facility] Address 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
--- OUTSIDE RECORDS SUMMARY | 2024-11-11 15:31 | XMS_ITS | Clinical Summary ---
[facility] Organization [facility] Address [address] Attn: Epic Prelude ADT [place] [place] [id number] Care Team Providers Care Site Physician Name Role Phone Unavailable Primary Care Provider Unavailabl e Social History Tobacco Use Types Packs/Day Years Used Date Smoking Tobacco: Never Assessed Comments Unknown Sex and Gender Information Value Date Recorded Sex Assigned at Not on file Legal Sex Female 4:23 AM PLAN REP Gender Identity Not on file Sexual Orientation [...]
== END 2024-11-11 14:52 | disposition home or self-care (01) ==
PROVIDERS: Emergency Provider Physician Assistant; PCP Family Medicine
DX: S32.010A Wedge compression fracture of first lumbar vertebra, initial encounter for closed fracture (principal); I10 Essential (primary) hypertension; E11.9 Type 2 diabetes mellitus without complications; E66.9 Obesity, unspecified; Z68.32 Body mass index [BMI] 32.0-32.9, adult; E55.9 Vitamin D deficiency, unspecified; E78.2 Mixed hyperlipidemia; D51.9 Vitamin B12 deficiency anemia, unspecified; Z85.51 Personal history of malignant neoplasm of bladder; Z86.16 Personal history of COVID-19; W18.39XA Other fall on same level, initial encounter; Y93.79 Activity, other specified sports and athletics; R16.2 Hepatomegaly with splenomegaly, not elsewhere classified; Z79.85 Long-term (current) use of injectable non-insulin antidiabetic drugs; Z79.899 Other long term (current) drug therapy
CPT/HCPCS: 36415; 74177; 80053; 85025; 99284; A9270; Q9967